=== PATIENT | female | born 1960 | race Caucasian/White ===

== ENCOUNTER 2016-11-06 19:00 | Emergency (ER) | payer OTHER ==
--- NOTE | ~2016-11-06 | CT4 ---
[facility] A Service of [facility] [place] [place] RADIOLOGY TEXT RESULTS PATIENT: ANUSHKA SCHUSTER LOCATION: [facility] : 56 UNIT #: [id number] AGE: [address]: Domi Dupont APRN SEX: F ORDER DR: [id number] [facility] [address] [facility]. [place], [place] [address] [id number] MR#: [id number] Acc #: [id number] NAME: ANUSHKA SCHUSTER : 1960 SEX: F STUDY DATE/TIME: 11/06/2016 19:38 UNIT: CFTX ROOM: STUDY DESCRIPTION: CT Abd and Pelv Wo Cont Attending Physician: Domi Dupont A.P.R.N. Ordering Physician: Domi Dupont A.P.R.N. Primary Care Physician: Chris Chan D.O. MEDICAL IMAGING REPORT This report is preliminary unless electronic signature is present EXAM CT abdomen and pelvis without contrast HISTORY Abdomen pain for 2 weeks. No injury. TECHNIQUE CT abdomen and pelvis was performed without contrast. This CT exam was performed with one or more of the following radiation dose reduction techniques: automatic exposure control, adjustment of mA and/or kV according to patient size, and iterative reconstruction. FINDINGS CT ABDOMEN: There is mild multifocal subsegmental atelectasis in both lung bases. Two calcified granulomas in the inferior left lower lobe. Left hepatic resection. The right hepatic lobe and caudate lobe are unremarkable. The spleen, pancreas, kidneys, and adrenal glands are normal. Normal caliber abdominal aorta. No bowel dilatation. No ascites. CT PELVIS: Normal appendix. No free fluid. No inflammatory stranding. The uterus and adnexa are unremarkable. Urinary bladder is also unremarkable. IMPRESSION 1. No acute findings in the abdomen or pelvis. 2. No bowel obstruction or urinary obstruction. 3. Left hepatic resection. 4. Incidental multifocal subsegmental atelectasis in both lung bases. [facility] A Service of [facility] [place] [place] RADIOLOGY TEXT RESULTS PATIENT: ANUSHKA SCHUSTER LOCATION: [facility] : 56 UNIT #: [id number] AGE: [address]: Domi Dupont APRN SEX: F ORDER DR: Dictated by... Camilo Sanabria M.D. THIS IS AN ELECTRONICALLY VERIFIED REPORT Camilo Sanabria M.D. at 11/07/2016 9:09 PM DFL/pcl TD: 11/06/2016 22:43 JOB #: [id number] MEDICAL IMAGING REPORT Page 1 of 1 COPY
[~2016-11-06 19:00] MED LIST: ABILIFY PO; ACEON; ACETAMINOPHEN PO; ACETAMINOPHEN650 M1 PO; ALDACTONE25 MG PO; ANTI-DIARRHEAL2 M1 PO; ANTIVERT PO; ARTIFICIAL TEA1 EACH; ASPIRIN PO; ASPIRIN81 M1 PO; ASPIRIN81 M2 PO; ATIVAN0.5 MG PO; AVANDIA; BACTRIM DS TABL1 TA1 PO; BACTRIM DS TABL1 TAB; BYETTA10 MCG/0.0 INJ; BYETTA10 MCG/0.0 SUBQ; CELEBREX; CELEXA20 MG PO; CIPRO; CIPRO PO; COATED ASPIRIN325 M1 PO; CYCLOBENZAPRINE5 MG PO; CYMBALTA PO; CYMBALTA20 MG PO; CYMBALTA30 MG PO; DESYREL50 M1 PO; DICLOFENAC PO; DIFLUCAN100 MG PO; DITROPAN5 MG PO; DOC-Q-LACE100 MG PO; DOXEPIN; DULOXETINE HCL60 MG PO; EFFEXOR; FAMVIR500 M1; FLEXERIL PO; GENOPTIC5 ML OP; GLUCOTROL; HALDOL PO; HUMALOG MIX 75/10 ML SQ; HUMALOG MIX 75/10 ML SUBQ; HUMALOG MIX 75/23 M1 SQ; HUMALOG MIX 75/23 ML; HUMALOG100 U/M2 SUBQ; HUMALOG100 U/ML IJ; HUMALOG100 U/ML SUBQ; HUMULIN 70/30 V10 ML SUBQ; HYDROCODON-ACE1 EAC1 PO; HYDROCODON-ACE1 EAC7 PO; HYDROCODON-ACE1 EAC9 PO; JANUVIA100 MG PO; KEFLEX500 MG PO; KETOPROFEN PO; LANTUS100 U/M1 IJ; LANTUS100 U/ML SUBQ; LANTUS100 UNITS/; LANTUS100 UNITS/ SUBQ; LASIX20 MG PO; LEVAQUIN PO; LEVOXYL200 MCG PO; LIPITOR40 MG; LIPITOR40 MG PO; LISINOPRIL PO; LISINOPRIL10 MG PO; LISINOPRIL20 MG PO; LORTAB 10-5001 EACH PO; LORTAB 5-325 M1 EACH PO; LORTAB 7.5-5001 TAB PO; LORTAB 7.51 TAB 7.5/ PO; LYRICA75 MG PO; MEDROL PO; METOPROLOL SUCC25 MG PO; MULTI VITAMIN1 EACH PO; NAPROXEN PO; NEURONTIN100 MG PO; NEURONTIN300 MG PO; NORCO 5/325 TAB1 TAB PO; NORCO 7.5-3251 EACH PO; NORFLEX100 MG PO; NORVASC2.5 MG PO; NOVOLIN 70/30 V10 ML INJ; NOVOLOG100 U/ML; NOVOLOG100 U/ML SUBQ; OMEPRAZOLE20 M2 PO; OMEPRAZOLE40 MG PO; ONDANSETRON ODT4 MG PO; PANTOPRAZOLE SO40 MG PO; PARAFON FORTE500 MG PO; PAXIL; PEPCID PO; PERCOCET10 PO; PHENERGAN12.5 MG PO; PHENERGAN25 MG PO; POLYGESIC 5/5001 CAP PO; POTASSIUM PHOSPHATE PO; PREDNISONE PO; PRILOSEC; PRILOSEC PO; PRILOSEC40 MG PO; PRINIVIL10 MG PO; PROTONIX PO; REGLAN10 MG PO; RITALIN PO; SIMVASTATIN20 MG PO; SIMVASTATIN40 MG PO; SUPRAX400 M1 PO; SUPRENZA ODT30 MG PO; SYMBICORT INH; SYNTHROID; SYNTHROID PO; SYNTHROID175 MCG PO; SYNTHROID75 MCG PO; TEMAZEPAM PO; TORADOL10 MG PO; TRAZODONE HCL100 MG PO; TRAZODONE PO; TUMS500 M1 PO; TYLOX 5-500 CA1 EACH PO; ULTRAM; ULTRAM PO; VICODIN 5/1 TAB 5/50 PO; VICODIN 5/500 T1 TAB PO; VICTOZA 3-0.6 MG/0.1 SQ; VYTORIN 10/20 T1 TAB; VYTORIN 10/40 T1 TAB PO; ZANAFLEX; ZANAFLEX4 M1 PO; ZITHROMAX1 G/PKT PO; ZITHROMAX500 MG PO; ZOCOR PO; ZOCOR5 MG PO; ZOFRAN PO; [UNRECOGNIZED DRUG - REMARK]
[2016-11-06 19:18] LABS: URINE SOURCE CLEAN CATCH
[2016-11-06 19:22] LABS: BASOPHIL# 0.1 X10e3 (0-0.3); BASOPHIL% 0.5 % (0-2.5); EOSINOPHIL# 0.4 X10e3 (0-0.7); EOSINOPHIL% 3.1 % (0.0-7.0); HEMATOCRIT 45.2 % (35.0-45.0); HEMOGLOBIN 14.6 gm/dL (12.0-16.0); LYMPHOCYTE# 2.5 X10e3 (1.0-3.5); LYMPHOCYTE% 18.6 % (17.0-45.0); MEAN CORPUSCULAR HEMOGLOBIN 28.1 PG (28-34); MEAN CORPUSCULAR HGB CONC 32.3 g/dL (30-36); MEAN PLATELET VOLUME 8.7 FL (6.5-11.5); MONOCYTE# 0.9 X10e3 (0-1.0); MONOCYTE% 6.5 % (3.0-12.0); NEUTROPHIL# 9.6 X10e3 (1.5-7.1); NEUTROPHIL% 71.3 % (40-75); PLATELET COUNT 260 X10e3 (140-420); RED BLOOD COUNT 5.19 X10e (3.90-5.30); RED CELL DISTRIBUTION WIDTH 13.9 % (11.0-15.5); WHITE BLOOD COUNT 13.5 X10e3 (4.0-10.5)
[2016-11-06 19:23] LABS: DIFF IND NO
[2016-11-06 19:25] LABS: URINE APPEARANCE CLOUDY; URINE BILIRUBIN NEG (NEG); URINE BLOOD TRACE (NEG); URINE COLOR YELLOW; URINE GLUCOSE >1000 MG/DL (NEG); URINE KETONE NEG (NEG); URINE LEUKOCYTE ESTERASE 1+ (NEG); URINE NITRATE NEG (NEG); URINE PROTEIN NEG (NEG); URINE SPECIFIC GRAVITY 1.032 (1.003-1.035); URINE UROBILINOGEN 0.2 MG/DL (NEG)
[2016-11-06 19:27] LABS: CULTURE INDICATED? YES; URINE BACTERIA AUWI 3+ (NEGATIVE); URINE SQUAMOUS EPITHELIAL CELL OCC /[HPF]; UWBCS1 AUWI 50-100 (0-5)
[2016-11-06 19:47] LABS: ALBUMIN SERUM 4.4 g/dL (3.5-5.0); BILIRUBIN,TOTAL 1.1 mg/dL (0.2-2.0); CALCIUM SERUM 9.3 mg/dL (8.4-10.2); GLOM FILT RATE Estimated 62.1 mL/min (>60); POTASSIUM 4.1 mmol/L (3.5-5.1); PROTEIN TOTAL SERUM 7.5 g/dL (6.0-8.3)
== END 2016-11-06 20:22 | disposition home or self-care (01) ==
LOC: CFTX 19:00
PROVIDERS: Nurse Practitioner
DX: S29.012A Strain of muscle and tendon of back wall of thorax, initial encounter (principal); E11.9 Type 2 diabetes mellitus without complications; I10 Essential (primary) hypertension; K21.9 Gastro-esophageal reflux disease without esophagitis; Z79.4 Long term (current) use of insulin; Z90.49 Acquired absence of other specified parts of digestive tract; Z91.041 Radiographic dye allergy status; Z88.7 Allergy status to serum and vaccine; X58.XXXA Exposure to other specified factors, initial encounter; Y92.9 Unspecified place or not applicable
CPT/HCPCS: 36415; 74176; 80053; 81003; 82150; 83690; 85025; 87086; 99284

== ENCOUNTER 2016-11-26 18:14 | Emergency (ER) | payer OTHER ==
[2016-11-26 18:49] LABS: URINE SOURCE CLEAN CATCH
[2016-11-26 18:57] LABS: URINE APPEARANCE CLOUDY; URINE BILIRUBIN NEG (NEG); URINE BLOOD 1+ (NEG); URINE COLOR YELLOW; URINE GLUCOSE >1000 MG/DL (NEG); URINE KETONE NEG (NEG); URINE LEUKOCYTE ESTERASE 2+ (NEG); URINE NITRATE NEG (NEG); URINE PROTEIN NEG (NEG); URINE SPECIFIC GRAVITY 1.033 (1.003-1.035); URINE UROBILINOGEN 0.2 MG/DL (NEG)
[2016-11-26 18:59] LABS: CULTURE INDICATED? YES; URBCS1 AUWI 25-50 /[HPF] (0-2); URINE BACTERIA AUWI NEG (NEGATIVE); URINE SQUAMOUS EPITHELIAL CELL OCC /[HPF]; UWBCS1 AUWI INNUM (0-5)
[2016-11-26 19:05] LABS: URINE YEAST PRESENT
[2016-11-26 19:42] LABS: BASOPHIL# 0.1 X10e3 (0-0.3); EOSINOPHIL# 0.5 X10e3 (0-0.7); EOSINOPHIL% 3.3 % (0.0-7.0); HEMATOCRIT 46.3 % (35.0-45.0); LYMPHOCYTE# 3.4 X10e3 (1.0-3.5); LYMPHOCYTE% 22.8 % (17.0-45.0); MEAN CELL VOLUME 87.6 FL (83-96); MEAN CORPUSCULAR HEMOGLOBIN 28.5 PG (28-34); MEAN CORPUSCULAR HGB CONC 32.5 g/dL (30-36); MEAN PLATELET VOLUME 8.6 FL (6.5-11.5); MONOCYTE# 1.1 X10e3 (0-1.0); MONOCYTE% 7.3 % (3.0-12.0); NEUTROPHIL# 9.8 X10e3 (1.5-7.1); NEUTROPHIL% 65.6 % (40-75); PLATELET COUNT 308 X10e3 (140-420); RED BLOOD COUNT 5.28 X10e (3.90-5.30); RED CELL DISTRIBUTION WIDTH 14.3 % (11.0-15.5); WHITE BLOOD COUNT 14.9 X10e3 (4.0-10.5)
[2016-11-26 19:49] LABS: DIFF IND NO
[2016-11-26 20:08] LABS: CALCIUM SERUM 9.6 mg/dL (8.4-10.2); GLOM FILT RATE Estimated 62.1 mL/min (>60); POTASSIUM 4.1 mmol/L (3.5-5.1)
== END 2016-11-26 21:21 | disposition home or self-care (01) ==
LOC: CED 18:14 → CFTX 18:14
PROVIDERS: Nurse Practitioner Family
DX: N39.0 Urinary tract infection, site not specified (principal); B37.3 Candidiasis of vulva and vagina; E11.9 Type 2 diabetes mellitus without complications; I10 Essential (primary) hypertension; K21.9 Gastro-esophageal reflux disease without esophagitis; Z86.73 Personal history of transient ischemic attack (TIA), and cerebral infarction without residual deficits; Z86.14 Personal history of Methicillin resistant Staphylococcus aureus infection; Z90.49 Acquired absence of other specified parts of digestive tract; Z98.890 Other specified postprocedural states; Z79.899 Other long term (current) drug therapy; Z91.041 Radiographic dye allergy status; Z87.891 Personal history of nicotine dependence
CPT/HCPCS: 36415; 80048; 81003; 82947; 85025; 87040; 87086; 96361; 96365; 99284; J0696

== ENCOUNTER 2016-12-23 18:58 | Inpatient (IN) | payer OTHER ==
--- NOTE | ~2016-12-23 | HP ---
Unit #: [id number] #: [id number] Patient: ANUSHKA SCHUSTER [id number] [facility]. [place], [place] [address] [id number] I MR#: [id number] NAME: ANUSHKA CSHUSTER ROOM: [address] Age: 56 Sex: F Admission Date: 12/23/2016 : 1960 Attending Physician: Stella Cardoza M.D. Primary Care Physician: Chris Chan D.O. HISTORY AND PHYSICAL CHIEF COMPLAINT Cough, limited in sleep, inhalation. DISCUSSION This is a 56-year-old female with a history of insulin dependent diabetes, hypertension, history of cholangiocarcinoma, hypothyroid, stroke with residual mild left-sided weakness, dyslipidemia, depression, GERD, obesity. She was brought to the emergency room, had evaluation of chest pain with a deep breath. She said she fell asleep on recliner chair and she vomited in her sleep. She woke up with burning sensation in the chest. She says she inhaled bile and she came to the ER with persistent cough and flu like sensation and pain with deep breath. She shows bilateral basal infiltrate suspicious for aspiration pneumonia. She was found to be hypoxic on ABG and eventually been admitted for pneumonia and possible aspiration. She is alert and oriented x3. She denies any fever or chills. She says she vomited one time and happed all today. She is having a persistent cough of two days. She denied any previous complaints. No abdominal pain, no nausea, or vomiting. No headache. No loss of consciousness. PAST MEDICAL HISTORY 1. History of insulin dependent diabetes. 2. Hypertension. 3. History of cholangiocarcinoma, status post resection of the gallbladder. She says she is in remission. 4. History of pneumonia, ARDS with subsequent trach and PEG tube placement in the past, which have been removed. 5. Pulmonary aspergillosis. 6. History of C. diff in the past. 7. 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 8. Hypertension. 9. Hyperlipidemia. 10. History of hypothyroid in the past. 11. History of depression. 12. Previous history of Van palsy. PAST SURGICAL HISTORY 1. History of PEG placement with subsequent removal. 2. History of trach placement with subsequent removal. 3. Bilateral carpal tunnel release. 4. Cholecystectomy and left hepatectomy, again, with positive margins for cholangiocarcinoma. 5. History of cataract extraction. Unit #: [id number] #: [id number] Patient: ANUSHKA SCHUSTER 6. Bilateral elbow surgery. 7. Previous history of negative breast biopsy. ALLERGIES She is allergic to IV contrast and pneumonia vaccine. FAMILY HISTORY Family history is significant for morbid obesity, diabetes and coronary artery disease in the family. SOCIAL HISTORY She lives with . She denies smoking. She denies alcohol or other illicit drug use. HOME MEDICATIONS 1. Celexa 10 mg daily. 2. Humalog 20 units twice a day. 3. Hydrocodone 10/325 1 tablet q.8 hours p.r.n. 4. Lantus 40 and 65 units twice a day. 5. Lisinopril 10 mg daily. 6. Trulicity 1.5 mg subcutaneously. 7. She takes also zantac. REVIEW OF SYSTEMS All review of system negative except for history of present illness. PHYSICAL EXAMINATION GENERAL: A middle-aged female, lying in the bed comfortably, currently not in any distress. She is alert, awake, and oriented x3. Comfortable, not in any distress. VITAL SIGNS: Current vitals are following: Temperature 97.9, heart rate 99, respiratory rate 16, blood pressure 174/90, oxygen 93% on general admission. HEENT: Pupils equal, round, reactive to light and accommodation. Head is normal, atraumatic. Anicteric sclerae. Conjunctivae no pallor. NECK: Supple. No JVD. No lymphadenopathy. No thyromegaly. HEART: S1 and S2. Regular rate and rhythm. LUNGS: Decreased air entry bilaterally with bilateral basal crackles. ABDOMEN: Obese, soft, nondistended. EXTREMITIES: No cyanosis, no clubbing, no edema. SKIN: Warm and dry. NEUROLOGIC: Cranial nerves II-XII was intact. There is a mild left-sided weakness, which was chronic. PSYCH: Normal mood and affect. DIAGNOSTIC STUDIES LABORATORY STUDIES: Troponin less than 0.05. ABG - pH 7.45, pO2 is 55, CO2 30. Sodium 138, potassium 4.3, chloride 101, bicarb 30, glucose 262, BUN 17, creatinine 0.8. LFT within normal limits. INR if 1. CBC - white count 8, hemoglobin 13, hematocrit 40, platelets 206. IMAGING STUDIES: Chest x-ray - questionable bilateral basilar infiltrate. ASSESSMENT AND PLAN 1. Pneumonia with bilateral basilar infiltrate, questionable aspiration. Started patient on IV Zosyn. Will get sling and swath to evaluate in the morning. 2. Acute hypoxia, place on oxygen to keep titration more than 30. Unit #: [id number] #: [id number] Patient: ANUSHKA SCHUSTER 3. History of insulin dependent diabetes. 4. Hypertension. 5. History of cholangiocarcinoma in the past. 6. History of hypothyroidism of old repair. She is not on Synthroid. Will recheck TSH. 7. History of stroke with residual left-sided weakness. 8. History of dyslipidemia. 9. Depression. 10. GERD. 11. Obesity. 12. DVT prophylaxis. Will place the patient on Lovenox. 13. 1. Dictated by Jeannie Melendez TD: 12/24/2016 05:03 JOB #: [id number] HISTORY AND PHYSICAL Page 1 of 1 X X HISTORY AND PHYSICAL
--- NOTE | ~2016-12-23 | CR72 ---
[facility] A Service of [facility] RADIOLOGY TEXT RESULTS PATIENT: ANUSHKA SCHUSTER LOCATION: [facility] [id number] : 56 UNIT #: [id number] AGE: [address]: Hannah Perkins MD SEX: F ORDER DR: [id number] [facility] [address] [facility]. [place], [place] [address] [id number] I MR#: [id number] Acc #: [id number] NAME: ANUSHKA SCHUSTER : 1960 SEX: F STUDY DATE/TIME: 12/23/2016 20:20 UNIT: CED ROOM: 88074 STUDY DESCRIPTION: CR Chest Single View Portable Attending Physician: Stella Cardoza M.D. Ordering Physician: Faby Ragsdale M.D. Primary Care Physician: Chris Chan D.O. MEDICAL IMAGING REPORT This report is preliminary unless electronic signature is present EXAM Portable chest x-ray . HISTORY Chest pain, short of air. Reflux episodes possible aspiration. Chest pain, cough, congestion today. COMPARISON 12/14/15. FINDINGS AP radiograph of the chest presented. Mild cardiac enlargement may in part reflect low lung volumes. Patchy and linear densities bilateral lung bases. Nonspecific appearance. Lung volumes lower than on the prior study and some of these densities may be atelectatic in nature. Bibasilar pneumonia is a consideration in the appropriate clinical context. Given distribution, aspiration is a consideration. No dense airspace consolidation. The upper lung zones are clear. No pleural effusion or pneumothorax and no suspicious nodule. The lungs could best be further evaluated with formal PA and lateral radiographs of the chest obtained at fully inspiration. Dictated by... Ken Herman M.D. THIS IS AN ELECTRONICALLY VERIFIED REPORT Ken Herman M.D. at 12/24/2016 8:14 AM BILL/karol TD: 12/24/2016 07:31 JOB #: [id number] MEDICAL IMAGING REPORT [facility] A Service of [facility] RADIOLOGY TEXT RESULTS PATIENT: ANUSHKA SCHUSTER [facility] [address]43 : 56 UNIT #: [id number] AGE: [address]: Hannah Perkins MD SEX: F ORDER DR: Page 1 of 1 COPY
--- NOTE | ~2016-12-23 | NM19 ---
[facility] A Service of [facility] & [facility] RADIOLOGY TEXT RESULTS PATIENT: ANUSHKA SCHUSTER LOCATION: [facility] [id number] : 56 UNIT #: [id number] AGE: [address]: Hannah Perkins MD SEX: F ORDER DR: [id number] [facility] [address] [facility]. [place], [place] [address] [id number] I MR#: [id number] #: [id number] NAME: ANUSHKA SCHUSTER : 1960 SEX: F STUDY DATE/TIME: 12/26/2016 8:19 UNIT: [address] ROOM: [facility] STUDY DESCRIPTION: NM Gastric Emptying Study Attending Physician: Hannah Perkins M.D. Ordering Physician: Hannah Perkins M.D. Primary Care Physician: Chris Chan D.O. MEDICAL IMAGING REPORT This report is preliminary unless electronic signature is present EXAM Radionuclide gastric emptying scan. HISTORY Mid epigastric cramping, normal duodenum, a lot of acid reflux and bile, up in and back into lungs causing pneumonia, nausea, vomiting, early satiety stays full intermittent for 13 years in throat 2 to 3 years with bad reflux up, feels a lot of abdomen pressure if eats a large meal, belching a lot. Prior liver cancer 2013. One-half liver removed. Following ingestion of 516 mcCi Technetium 99m sulfur colloid admixed scrambled eggs, anterior and posterior views of the abdomen were obtained at 15-minute intervals for 150 minutes. Region of interest drawn around stomach and time-activity curve constructed. Percent remaining at time intervals as follows: 15 minutes - 97%, 30 minutes - 90%, 45 minutes - 89%, 60 minutes - 92%, 75 minutes - 100%, 90 minutes - 100%, 105 minutes - 100%, 120 minutes - 100%, 135 minutes - 96%, 150 minutes - 95%. Percent empty at time intervals as follows: 15 minutes - 3%, 30 minutes - 10%, 45 minutes - 11%, 60 minutes - 8%, 75/90/105/120 minutes - 0%, 135 minutes - 4%, 150 minutes - 5%. IMPRESSION 1. Abnormal examination. Two hour solid phase gastric emptying is 0%. Study not extended to the 4-hour time frame. Study suggests significant gastric motility dysfunction. Correlate clinically. Dictated by... Ken Herman M.D. [facility] A Service of [facility] RADIOLOGY TEXT RESULTS PATIENT: ANUSHKA SCHUSTER LOCATION: [facility] [address] : 56 UNIT #: [id number] AGE: [address]: Hannah Perkins MD SEX: F ORDER DR: THIS IS AN ELECTRONICALLY VERIFIED REPORT Ken Herman M.D. at 12/27/2016 6:12 PM Pia TD: 12/26/2016 14:06 JOB #: [id number] MEDICAL IMAGING REPORT Page 1 of 1 COPY
--- NOTE | ~2016-12-23 | DS ---
Unit #: [id number] #: [id number] Patient: ANUSHKA JUSTICE [id number] [address] [place], [place] [address] [id number] I MR#: [id number] NAME: ANUSHKA JUSTICE ROOM: [facility] Age: 56 Sex: F Admission Date: 12/23/2016 : 1960 Discharge Date: 12/26/2016 Attending Physician: Hannah Perkins M.D. Primary Care Physician: Chris Chan D.O. DISCHARGE SUMMARY PRINCIPAL DIAGNOSES 1. Sepsis, secondary to aspiration pneumonia. 2. Acute hypoxic respiratory failure, secondary to #1, now resolved. 3. Probable gastroparesis with pending gastric emptying study. 4. Gastritis. 5. Esophagitis. 6. Diabetes mellitus, insulin requiring and uncontrolled. Hemoglobin A1c of 8. 7. Reactive airway disease, now resolved. 8. Hypothyroidism. 9. Hypertension, controlled. 10. Gastroesophageal reflux disease. 11. History of stroke, mild residual left-sided weakness. 12. Obesity. CARGO MATE Dr. Dasilva, general surgery. PROCEDURE 1. Gastric emptying study, results of which are currently pending. 2. Chest x-ray on December 23, 2016 with patchy linear densities in the bilateral lung bases. 3. EGD on December 25, 2016 with retained food, mid esophageal esophagitis, and normal duodenum. CLINICAL HISTORY AND HOSPITAL COURSE Ms. Justice is a 56-year-old female who presents to the emergency department after the abrupt onset of shortness of breath. This happened after an episode of severe reflux at home. Please refer to H and P for further details. Upon presentation, she did not have any evidence of leukocytosis. She was, however, found to be hypoxic and subsequently admitted. Patient was placed on empiric antibiotics for aspiration. She was also placed on IV steroids for a short period due to some associated wheezing and her hypoxia. With antibiotic therapy and steroids, her breathing improved significantly. She has been transitioned to Augmentin and oral steroids. Her hypoxia has resolved. Ambulating O2 saturations yesterday were 92% on room air. The patient does have oxygen 2 L at home to use on a p.r.n. basis and of course, she can use it if she feels the need. Given the fact patient's symptoms began after some significant reflux, LSA was consulted. Patient underwent EGD revealing some gastritis and esophagitis. She also had a lot of retained material in the stomach. Unit #: [id number] #: [id number] Patient: ANUSHKA JUSTICE Given these findings, patient underwent gastric emptying study, results of which are currently pending. Patient today, however, states she is going home and she can follow up with her primary care physician regarding the results and I think this is appropriate. She is tolerating liquids and I will advance diet prior to discharge. I will also give her a prescription for Reglan. Patient's other chronic conditions remain stable and she will be discharged home later today. DISCHARGE CONDITION Stable. DISCHARGE STATUS Discharge to home. DISCHARGE MEDICATIONS 1. Trulicity 1.5 mg subcutaneously weekly. 2. Lisinopril 20 mg daily. 3. Humalog 20 units subcutaneous t.i.d. with meals. 4. Lantus 55 units subcutaneously b.i.d. 5. [place] 10/325 one tablet p.o. q.8 hours p.r.n. for pain. 6. Protonix 40 mg b.i.d. 7. Flexeril 10 mg at bedtime. 8. Augmentin 875 mg p.o. b.i.d. for another three days. 9. Prednisone 20 mg two tablets for two days, one tablet for two days, then discontinue. 10. Reglan 5 mg p.o. t.i.d. with meals, one month prescription given. DISCHARGE INSTRUCTIONS 1. The patient was instructed to follow a heart healthy constant carb diet. She should do six small meals daily. 2. She can increase her activity as tolerated. FOLLOWUP Patient has followup appointment with her primary care physician, Dr. Chris Chan, tomorrow and she has been instructed to keep this appointment. She can be seen by Dr. Dasilva again as an outpatient if needed for repeat EGD. Dictated by... Hannah Perkins M.D. JOSELYN/darrell TD: 12/27/2016 10:23 JOB #: [id number] Unit #: [id number] #: [id number] Patient: ANUSHKA JUSTICE DISCHARGE SUMMARY Page 1 of 1 X Hannah Perkins MD X DISCHARGE SUMMARY
--- NOTE | ~2016-12-23 | DS ---
Unit #: [id number] #: [id number] Patient: ANUSHKA SCHUSTER 182004 [address] [address] [id number] Kaelyn MR#: [id number] NAME: ANUSHKA SCHUSTER ROOM: [facility] Age: 56 Sex: F Admission Date: 12/23/2016 : 1960 Discharge Date: 12/26/2016 Attending Physician: Hannah Perkins M.D. Primary Care Physician: Chris Chan D.O. DISCHARGE SUMMARY ADDENDUM Please note patient's gastric emptying study did return significantly abnormal with minimal gastric emptying at 2 hours. I have placed her on Reglan. She will be discharged home and will follow up with LSA as an outpatient. Dictated by... Hannah Perkins M.D. JOSELYN/miguelito TD: 12/27/2016 11:52 JOB #: [id number] DISCHARGE SUMMARY Page 1 of 1 X Hannah Perkins MD X DISCHARGE SUMMARY
--- NOTE | ~2016-12-23 | CO ---
Unit #: [id number] #: [id number] Patient: ANUSHKA SCHUSTER [id number] [address] [place], [place] [address] [id number] I MR#: [id number] NAME: ANUSHKA SCHUSTER ROOM: [facility] Age: 56 Sex: F Admission Date: 12/23/2016 : 1960 Attending Physician: Hannah Perkins M.D. Primary Care Physician: Chris Chan D.O. Consultation Date: 12/24/2016 CONSULTATION REPORT REASON FOR CONSULTATION Severe reflux. Thank you very much for asking us to see Ms. Suárez. HISTORY OF PRESENT ILLNESS She is a 56-year-old white female, whose past medical history is remarkable for insulin-dependent diabetes, hypertension, history of resection of a cholangiocarcinoma, hypothyroidism, mild stroke in the past, dyslipidemia, depression, GERD, and obesity. She was admitted from the emergency room after evaluation of chest pain and some shortness of breath. She woke up with a burning sensation in her chest and the back of her throat. She was evaluated and was admitted and we were asked to see at this time for severe reflux symptoms. She states she has only mild dysphagia. She has had no GI bleeding. No symptoms. PAST MEDICAL HISTORY Diabetes, hypertension, resection of cholangiocarcinoma in the past, cholecystectomy, history of C diff in the past, mild stroke in the past, hyperlipidemia, hypothyroidism, depression. PAST SURGICAL HISTORY History of a PEG and trach, both of which have been removed; bilateral carpal tunnel release; cholecystectomy; left hepatectomy; bilateral cataract removal; bilateral elbow surgery; history of breast biopsies in the past for benign disease. ALLERGIES IV contrast and pneumonia vaccine. FAMILY HISTORY Diabetes and heart disease. SOCIAL HISTORY No tobacco or alcohol use. REVIEW OF SYSTEMS Negative except for above. MEDICATIONS Please see med rec sheet. IMMUNIZATION STATUS Unknown. Unit #: [id number] #: [id number] Patient: ANUSHKA SCHUSTER PHYSICAL EXAMINATION GENERAL: Well-developed, well-nourished white female, in no apparent distress. VITAL SIGNS: Afebrile. Vital signs stable. HEENT: Sclerae not icteric. Extraocular movements are intact. BACK: No CVA or spinous tenderness. NECK: Supple. No thyromegaly or adenopathy. EXTREMITIES: No calf tenderness. ABDOMEN: Flat, soft, nontender. DIAGNOSTIC STUDIES LABORATORY RESULTS: Reveal the patient to have a CMP with a glucose of 218, BUN 16, creatinine 0.8. Normal electrolytes and liver function studies. CBC; the patient has a white count of 13.7, hemoglobin 12.9, hematocrit 41.1. PT and PTT are normal. IMPRESSION A 56-year-old white female with some mild dysphagia, severe reflux resistant to medications. We feel she should have upper endoscopy for further evaluation. All the risks and benefits of esophagogastroduodenoscopy have been fully explained to the patient in detail including the risk of bleeding, perforation, emergency surgery, , and other risks. She understands completely and requests to proceed. Dictated by... Jeannie Rick/neel TD: 12/25/2016 05:38 JOB #: [id number] CC: [facility] Stella Cardoza M.D. CONSULTATION REPORT Page 1 of 1 X Mikey Dasilva MD X CONSULTATION REPORT
--- NOTE | ~2016-12-23 | OR ---
Unit #: [id number] #: [id number] Patient: ANUSHKA SCHUSTER [id number] [address] [address] [id number] I MR#: [id number] NAME: ANUSHKA SCHUSTER ROOM: [facility] Date of Procedure: 12/25/2016 Admission Date: 12/23/2016 Surgeon: Mikey Dasilva M.D. : 1960 Attending Physician: Hannah Perkins M.D. Primary Care Physician: Chris Chan D.O. OPERATIVE REPORT PREOPERATIVE DIAGNOSIS Reflux symptoms. POSTOPERATIVE DIAGNOSIS Reflux symptoms. PROCEDURE PERFORMED Esophagogastroduodenoscopy. ANESTHESIA Monitored anesthesia care. FINDINGS The patient had a large amount of retained food present. She had midesophageal esophagitis and normal duodenum. SPECIMENS None. COMPLICATIONS None apparent. CONDITION The patient tolerated the procedure well. INDICATIONS FOR PROCEDURE The patient is a 56-year-old female, who presents at this time with reflux symptoms and resistant to medications and pneumonia possibly secondary to aspiration. She presents at this time for evaluation by upper endoscopy. DESCRIPTION OF PROCEDURE After obtaining informed consent, the patient was brought to the endoscopy suite. After adequate monitored anesthesia care, had the endoscope placed through the mouth into the upper esophagus under direct vision. It was advanced into the stomach without difficulty with the lumen always in view. Upon entering the stomach, there was a large amount of retained food present. We were able to pass through the pylorus into the duodenum. The duodenum was normal. We were not able to visualize the area of the pylorus very well due to the retained food and on retroflexion back to the GE junction again, a large amount of retained food was present. We were unable to visualize the fundus or cardia very well. On pulling back above the GE junction, there was no stenosis, stricture, or neoplasm seen. Unit #: [id number] #: [id number] Patient: ANUSHKA SCHUSTER There was no significant esophagitis distally, however, on pulling back into the midesophagus, there was an area of midesophageal esophagitis. The remaining portion of the esophagus was within normal limits. Laryngeal structures were not well visualized from above. The patient tolerated the procedure well and went from the endoscopy to the recovery area in stable condition. RECOMMENDATIONS Clear liquid diet, gastric emptying scan in the a.m., resume preop orders. The patient will most likely need repeat upper endoscopy in 1 to 2 days. Dictated by... Jeannie Rick/neel TD: 12/26/2016 02:05 JOB #: [id number] [facility] OPERATIVE REPORT Page 1 of 1 X Mikey Dasilva MD X PROCEDURE OPERATIVE NOTE
--- NOTE | ~2016-12-23 | EKG ---
PATIENT: ANUSHKA SCHUSTER UNIT #: [id number] Ventricular Rate: 98 BPM Atrial Rate: 98 BPM P-R Interval: 160 ms QRS Duration: 90 ms Q-T Interval: 372 ms QTC Calculation(Bezet): 474 ms P [place]: 61 degrees Calculated R [place]: 20 degrees Calculated T [place]: 39 degrees Diagnosis Line: Normal sinus rhythm Diagnosis Line: Low voltage QRS Diagnosis Line: Borderline ECG Diagnosis Line: When compared with ECG of 22-AUG-2015 20:18, Diagnosis Line: No significant change was found Diagnosis Line: Confirmed by MARC DALE MD ([id number]) on Diagnosis Line: 12/24/2016 5:47:45 PM INTERPRETING MD: BOUBACAR
[2016-12-23 20:15] LABS: BASOPHIL% 0.5 % (0-2.5); DIFF IND NO; EOSINOPHIL# 0.6 X10e3 (0-0.7); EOSINOPHIL% 6.9 % (0.0-7.0); HEMATOCRIT 40.9 % (35.0-45.0); HEMOGLOBIN 13.1 gm/dL (12.0-16.0); LYMPHOCYTE# 1.8 X10e3 (1.0-3.5); LYMPHOCYTE% 21.8 % (17.0-45.0); MEAN CELL VOLUME 88.8 FL (83-96); MEAN CORPUSCULAR HEMOGLOBIN 28.3 PG (28-34); MEAN CORPUSCULAR HGB CONC 31.9 g/dL (30-36); MEAN PLATELET VOLUME 8.6 FL (6.5-11.5); MONOCYTE# 0.7 X10e3 (0-1.0); MONOCYTE% 8.1 % (3.0-12.0); NEUTROPHIL# 5.2 X10e3 (1.5-7.1); NEUTROPHIL% 62.7 % (40-75); PLATELET COUNT 206 X10e3 (140-420); RED BLOOD COUNT 4.61 X10e (3.90-5.30); RED CELL DISTRIBUTION WIDTH 13.9 % (11.0-15.5); WHITE BLOOD COUNT 8.3 X10e3 (4.0-10.5)
[2016-12-23 20:25] LABS: PARTIAL THROMBOPLASTIN TIME 24.7 SECONDS (23.5-31.3); PROTHROMBIN TIME (PATIENT) 10.1 SECONDS (9.6-11.5)
[2016-12-23 20:32] LABS: ALBUMIN SERUM 3.8 g/dL (3.5-5.0); BILIRUBIN, DIRECT 0.1 mg/dL (0.0-0.2); BILIRUBIN,INDIRECT 0.4 mg/dL (0.0-0.9); BILIRUBIN,TOTAL 0.5 mg/dL (0.2-2.0); BUN/CREATININE RATIO 21.25; CALCIUM SERUM 9.5 mg/dL (8.4-10.2); CREATININE SERUM 0.8 mg/dL (0.6-1.4); GLOM FILT RATE Estimated 81.3 mL/min (>60); POTASSIUM 4.3 mmol/L (3.5-5.1); PROTEIN TOTAL SERUM 7.2 g/dL (6.0-8.3)
[2016-12-23 20:39] LABS: POC - TROPONIN <0.05 ng/mL (<=0.05)
[2016-12-23 21:53] LABS: ARTERIAL BLD GAS O2 SATURATION 92.2 % (90.0-100.0); ARTERIAL BLOOD GAS MET HB 0.6 %sat (0.0-2.0); ARTERIAL BLOOD GAS PCO2 43.2 mmHg (35.0-45.0); ARTERIAL BLOOD GAS PO2 65.1 mmHg (80.0-100); ARTERIAL DRAW? YES
[2016-12-23 21:54] LABS: ARTERIAL BLOOD GAS ART SITE LEFT BRACHIAL; ARTERIAL BLOOD GAS DELIVERY NASAL CANNULA
[2016-12-23] MEDS ORDERED: FLEXERIL10 MG PO (22:54)
[2016-12-23] MEDS ORDERED: HYDROCODON-ACE1 EAC5 PO (22:55)
[2016-12-23] MEDS ORDERED: HUMALOG100 UNIT/1 SUBQ (22:55)
[2016-12-23] MEDS ORDERED: LISINOPRIL10 MG PO (22:56)
[2016-12-23] MEDS ORDERED: LANTUS100 U/ML SUBQ (22:56)
[2016-12-23] MEDS ORDERED: TRULICITY1.5 MG/0.5 SUBQ (22:57)
[2016-12-23 23:06] LABS: POC - CKMB 4.1 ng/mL (0.0-7.9); POC - TROPONIN <0.05 ng/mL (<=0.05)
[2016-12-24 00:59] LABS: BASOPHIL% 0.3 % (0-2.5); DIFF IND NO; EOSINOPHIL# 0.6 X10e3 (0-0.7); EOSINOPHIL% 4.3 % (0.0-7.0); HEMATOCRIT 41.1 % (35.0-45.0); HEMOGLOBIN 12.9 gm/dL (12.0-16.0); LYMPHOCYTE# 1.9 X10e3 (1.0-3.5); MEAN CELL VOLUME 88.9 FL (83-96); MEAN CORPUSCULAR HEMOGLOBIN 27.9 PG (28-34); MEAN CORPUSCULAR HGB CONC 31.4 g/dL (30-36); MEAN PLATELET VOLUME 8.6 FL (6.5-11.5); MONOCYTE# 0.8 X10e3 (0-1.0); MONOCYTE% 5.9 % (3.0-12.0); NEUTROPHIL# 10.4 X10e3 (1.5-7.1); NEUTROPHIL% 75.5 % (40-75); PLATELET COUNT 193 X10e3 (140-420); RED BLOOD COUNT 4.62 X10e (3.90-5.30); RED CELL DISTRIBUTION WIDTH 14.1 % (11.0-15.5); WHITE BLOOD COUNT 13.7 X10e3 (4.0-10.5)
[2016-12-24 01:20] LABS: CALCIUM SERUM 9.2 mg/dL (8.4-10.2); CREATININE SERUM 0.8 mg/dL (0.6-1.4); GLOM FILT RATE Estimated 81.3 mL/min (>60); POTASSIUM 3.9 mmol/L (3.5-5.1)
[2016-12-24 15:40] LABS: FREE T3 3.8 pg/mL (2.5-3.9)
[2016-12-24 15:41] LABS: FREE THYROXIN (T4) 1.54 ng/dL (0.58-1.64)
[2016-12-25 05:22] LABS: HEMATOCRIT 43.3 % (35.0-45.0); HEMOGLOBIN 13.9 gm/dL (12.0-16.0); MEAN CELL VOLUME 87.7 FL (83-96); MEAN CORPUSCULAR HEMOGLOBIN 28.1 PG (28-34); MEAN PLATELET VOLUME 8.4 FL (6.5-11.5); RED BLOOD COUNT 4.93 X10e (3.90-5.30); RED CELL DISTRIBUTION WIDTH 14.1 % (11.0-15.5); WHITE BLOOD COUNT 14.1 X10e3 (4.0-10.5)
[2016-12-25 05:35] LABS: BUN/CREATININE RATIO 26.25; CALCIUM SERUM 9.8 mg/dL (8.4-10.2); CREATININE SERUM 0.8 mg/dL (0.6-1.4); GLOM FILT RATE Estimated 81.3 mL/min (>60); POTASSIUM 4.6 mmol/L (3.5-5.1)
[2016-12-26 06:12] LABS: HEMATOCRIT 42.9 % (35.0-45.0); HEMOGLOBIN 13.8 gm/dL (12.0-16.0); MEAN CELL VOLUME 87.6 FL (83-96); MEAN CORPUSCULAR HEMOGLOBIN 28.1 PG (28-34); MEAN CORPUSCULAR HGB CONC 32.1 g/dL (30-36); MEAN PLATELET VOLUME 8.4 FL (6.5-11.5); RED BLOOD COUNT 4.9 X10e (3.90-5.30); RED CELL DISTRIBUTION WIDTH 13.9 % (11.0-15.5); WHITE BLOOD COUNT 18.3 X10e3 (4.0-10.5)
[2016-12-26 06:57] LABS: BUN/CREATININE RATIO 36.66; CALCIUM SERUM 9.9 mg/dL (8.4-10.2); CREATININE SERUM 0.6 mg/dL (0.6-1.4); GLOM FILT RATE Estimated 100.5 mL/min (>60); POTASSIUM 3.7 mmol/L (3.5-5.1)
[2016-12-26] MEDS ORDERED: AUGMENTIN PO (15:08)
[2016-12-26] MEDS ORDERED: PROTONIX PO (15:08)
[2016-12-26] MEDS ORDERED: DELTASONE20 MG (15:09)
[2016-12-26] MEDS ORDERED: LISINOPRIL20 MG PO (15:10)
[2016-12-26] MEDS ORDERED: REGLAN5 MG PO (15:11)
== END 2016-12-26 16:07 | disposition home or self-care (01) | DRG 871 ==
LOC: CED 18:58 → CEDOF 23:20 → C3A PCU 23:20 → CED 23:31 → CEDOF 23:31 → C3A PCU 23:31 → CEDOF 12-24 08:24 → C3A PCU 12-24 11:20
PROVIDERS: Emergency Medicine; Internal Medicine; Internal Medicine Geriatric Medicine; Student in an Organized Health Care Education/Training Program; Surgery
PROC: 0DJ08ZZ Inspection of Upper Intestinal Tract, Via Natural or Artificial Opening Endoscopic (ICD-10-PCS; principal; 2016-12-25 07:30)
DX: A41.9 Sepsis, unspecified organism (principal); J69.0 Pneumonitis due to inhalation of food and vomit; K31.84 Gastroparesis; E11.43 Type 2 diabetes mellitus with diabetic autonomic (poly)neuropathy; I69.354 Hemiplegia and hemiparesis following cerebral infarction affecting left non-dominant side; E11.65 Type 2 diabetes mellitus with hyperglycemia; I10 Essential (primary) hypertension; K29.70 Gastritis, unspecified, without bleeding; K20.9 Esophagitis, unspecified; E03.9 Hypothyroidism, unspecified; K21.9 Gastro-esophageal reflux disease without esophagitis; E66.9 Obesity, unspecified; E11.9 Type 2 diabetes mellitus without complications; Z90.49 Acquired absence of other specified parts of digestive tract; Z98.49 Cataract extraction status, unspecified eye; E78.5 Hyperlipidemia, unspecified; F32.9 Major depressive disorder, single episode, unspecified; Z88.7 Allergy status to serum and vaccine; Z91.041 Radiographic dye allergy status; Z83.3 Family history of diabetes mellitus; Z82.49 Family history of ischemic heart disease and other diseases of the circulatory system
CPT/HCPCS: 36415; 36600; 71010; 78264; 80048; 80076; 82553; 82803; 82947; 83036; 83880; 84439; 84443; 84481; 84484; 85025; 85027; 85379; 85610; 85730; 92610; 93005; 94640; 94760; 96374; 96375; 97165; 99285; A9541; C9113; G8987-GO; G8988-GO; G8989-GO; G8996-GN; G8997-GN; G8998-GN; J1815; J2405; J2543; J2920

== ENCOUNTER 2017-01-14 18:39 | Inpatient (IN) | payer OTHER ==
--- NOTE | ~2017-01-14 | CR281 ---
[facility] A Service of [facility] & [facility] RADIOLOGY TEXT RESULTS PATIENT: ANUSHKA SCHUSTER LOCATION: [facility] 563-01 : 56 UNIT #: [id number] AGE: [address]: Christ Kim MD SEX: F ORDER DR: [id number] [facility] [address] [facility]. [place], [place] [address] [id number] I MR#: [id number] Acc #: [id number] NAME: ANUSHKA SCHUSTER : 1960 SEX: F STUDY DATE/TIME: 01/15/2017 1:35 UNIT: [facility] ROOM: [facility] STUDY DESCRIPTION: CR Wrist Min 3 View Lt Attending Physician: Christ Kim M.D. Ordering Physician: Renato Emery M.D. Primary Care Physician: Chris Chan D.O. MEDICAL IMAGING REPORT This report is preliminary unless electronic signature is present EXAM Left wrist. INDICATIONS Left wrist pain and bruising for 2 days. Hit a wall. FINDINGS Three views of the left wrist without comparison. There is no acute fracture or dislocation. Alignment is anatomic. No foreign body. IMPRESSION No acute traumatic findings. Dictated by... Chad Jolley M.D. THIS IS AN ELECTRONICALLY VERIFIED REPORT Chad Jolley M.D. at 01/15/2017 10:45 PM ZELALEM/eh TD: 01/15/2017 20:08 JOB #: [id number] MEDICAL IMAGING REPORT Page 1 of 1 COPY
--- NOTE | ~2017-01-14 | HP ---
Unit #: [id number] #: [id number] Patient: ANUSHKA SCHUSTER [id number] [address] [place], [place] [address] [id number] I MR#: [id number] NAME: ANUSHKA SCHUSTER ROOM: 56 Age: 56 Sex: F Admission Date: 01/15/2017 : 1960 Attending Physician: Christ Kim M.D. Primary Care Physician: Chris Chan D.O. HISTORY AND PHYSICAL CHIEF COMPLAINT Presumed aspiration/hospital acquired pneumonia, recurrent UTI. HISTORY OF PRESENT ILLNESS This pleasant 56-year-old female with history of cholangiocarcinoma, diabetes is admitted for shortness of breath and urinary tract infection. The patient was last admitted to this facility 12/23 through 12/26/2016 for aspiration pneumonia due to newly diagnosed gastroparesis. At the time of discharge, she was prescribed Augmentin as well as Reglan. Despite treatment, notes increasing shortness of breath over the past two weeks along with fatigue and pleuritic chest pain. Two days ago she had a fever, notes an occasional dry cough. The patient does have urinary symptoms including dysuria, urgency, frequency despite multiple rounds of antibiotics. Her primary care physician told her that she had a resistant UTI and would need IV antibiotics. She presented to this emergency department last evening where her chest x-ray is suspicious for bibasilar pneumonia. Urinalysis shows significant pyuria. In the ER, she was treated with Zosyn, vancomycin, tobramycin, bolused a liter of saline. PAST MEDICAL HISTORY 1. Recent admission in December for aspiration pneumonia. The patient was diagnosed with gastroparesis. 2. Admission 06/2013 for respiratory failure secondary to pneumonia, ARDS requiring trach and PEG tube at that time. PEG and trach were removed. 3. Cholangiocarcinoma status post left hepatectomy 06/2014 complicated by postop wound dehiscence. Surgical margins, however, were positive for malignancy. The patient states that sometimes she was in Hospice as chemotherapy was deemed unhelpful but she outlived her Hospice. 4. History of pulmonary aspergillosis. 5. History of C. difficile colitis. 6. CVA x2 with residual left-sided weakness. 7. Hypothyroidism. 8. Depression. 9. AODM. 10. Hypertension. 11. Hyperlipidemia. 12. Peripheral neuropathy. 13. IDDM with peripheral neuropathy and gastroparesis. 14. Previous history of Van's palsy which resolved. 15. Carpal tunnel release bilaterally. 16. Cataract extraction. 17. Cholecystectomy. Unit #: [id number] #: [id number] Patient: ANUSHKA SCHUSTER 18. Bilateral elbow surgery. 19. Negative breast biopsies. SOCIAL HISTORY The patient lives with her . She smoked one pack per day of tobacco for 30 years but stopped smoking about eight years ago, does not drink alcohol. FAMILY HISTORY Ovarian cancer, hypertension, diabetes mellitus. ALLERGIES IV dye and pneumococcal vaccine, questionably allergic to latex. HOME MEDICATIONS 1. Flexeril 10 mg q.h.s. 2. Humalog 20 units t.i.d. with meals. 3. [place] 10/325 mg b.i.d. p.r.n. 4. Lantus 55 units subcu b.i.d. 5. Lisinopril 20 mg daily. 6. Trulicity 1.5 mg subcu weekly. 7. Protonix 40 mg b.i.d. 8. Trazodone. The patient is being weaned off this medicine. I am unsure if it is 50 or 100 mg q.h.s. 9. Synthroid 0.2 mg daily. 10. Reglan 5 mg t.i.d. with meals. 11. Januvia 100 mg daily. 12. Ambien 5 mg q.h.s. 13. Restoril is being weaned down. Current dose is 7.5 mg q.h.s. 14. Wellbutrin XL 150 mg daily. REVIEW OF SYSTEMS Notable for shortness of breath, cough, urinary symptoms, fever, cholangiocarcinoma, C. diff., pulmonary aspergillosis, CVA, hypothyroidism, depression, diabetes, hypertension, hyperlipidemia, neuropathy, gastroparesis, above-mentioned surgeries. All other systems were reviewed and otherwise negative. PHYSICAL EXAMINATION GENERAL APPEARANCE: A pleasant, moderately obese 56-year-old female currently in no acute distress. VITAL SIGNS: Temperature 98. Pulse 111. Respirations 18. Blood pressure 159/83. O2 saturation 99% on two liters of oxygen. HEENT: Eyes: PERRLA. Extraocular muscles are intact. Pharynx is benign. NECK: Supple without adenopathy or thyromegaly. CHEST: Fairly clear. CARDIAC: Normal S1, S2 without S3, S4 or murmur. ABDOMEN: Bowel sounds are present. No hepatosplenomegaly, tenderness or masses. EXTREMITIES: There is a bruise over the left wrist. Patient has tenderness with flexion of the left wrist. No pedal edema. Pedal pulses are present. No ulcers on the feet. NEUROLOGIC: The patient is awake, alert, oriented. Cranial nerves are intact. Equal strength throughout. DIAGNOSTIC STUDIES LABORATORY: Hematocrit 38.9, WBC count 11.8. SMA-12: Glucose 354, sodium 130, chloride 99, alkaline phosphatase 118, lactic acid 2.4. Unit #: [id number] #: [id number] Patient: ANUSHKA SCHUSTER Urinalysis: 2+ leukocyte esterase, 100 to 200 white cells, 2 to 5 red cells. IMAGING: Chest x-ray shows bibasilar infiltrates. CARDIOVASCULAR: EKG: Sinus rhythm, rate 99, normal appearing. ASSESSMENT 1. Presumed aspiration/hospital-acquired pneumonia. 2. Recurrent UTIs, which apparently are resistant to oral antibiotics per patient. 3. Insomnia. The patient is being weaned of the Restoril and trazodone. 4. History of cholangiocarcinoma status post resection with positive margins. 5. IDDM with gastroparesis and peripheral neuropathy. 6. Hypertension. 7. Hypothyroidism. PLAN 1. Meropenem and vancomycin for now pending cultures. 2. Pulmonary consultation. 3. DVT prophylaxis. 4. X-rays of the left wrist. Dictated by Cierra Meyer M.D. AML/bd TD: 01/15/2017 06:47 JOB #: [id number] HISTORY AND PHYSICAL Page 1 of 1 X Cierra Meyer MD X HISTORY AND PHYSICAL
--- NOTE | ~2017-01-14 | DS ---
Unit #: [id number] #: [id number] Patient: ANUSHKA SCHUSTER [id number] [address] [place], [place] [address] [id number] I MR#: [id number] NAME: ANUSHKA SCHUSTER ROOM: [facility] Age: 56 Sex: F Admission Date: 01/15/2017 : 1960 Discharge Date: Attending Physician: Christ Kim M.D. Primary Care Physician: Chris Chan D.O. DISCHARGE SUMMARY PRIMARY DIAGNOSIS Pneumonia, likely. SECONDARY DIAGNOSES 1. Urinary tract infection with Escherichia coli. 2. Insomnia. 3. History of cholangiocarcinoma status post resection with positive margins. 4. Insulin-dependent diabetes. 5. Severe diabetic gastroparesis. 6. History of reflux esophagitis. 7. Asthma with history of asthma exacerbations presumed to be worsened by her reflux. 8. Hypertension. 9. Hypothyroidism. HOSPITAL COURSE Patient was admitted to the hospital, started on meropenem and vancomycin, in part due to her recent hospitalization to cover for possible healthcare-associated pneumonia with a possible or probable gram-negative avril or possible MRSA. Her initial chest x-ray was mostly concerning for pneumonia regarding her lower lobes, and pulmonology was consulted with Dr. Olson and Dr. Ruiz, who ordered a CT scan. The CT scan showed stable linear atelectasis or scarring in the lower lobes bilaterally. However, it showed a different infiltrate that was than the chest x-ray that was concerning for possible pneumonia. This was a moderate patchy infiltrate in the mid and inferolateral right upper lobe. Please see CT of the chest report for details. Patient additionally had urinalysis that was suggestive of a UTI, and she reported that her primary care physician had told her she needed IV antibiotics because she had multi-drug resistant UTI. This was part of the reason that the choice of meropenem was made for her lung issues. However, after the urine cultures finally came back, she did have two separate E-coli. One of them was resistant to Bactrim, resistant to ampicillin and of intermediate sensitivity to Rocephin. There was no extended spectrum beta-lactamase resistance noted, and both E-coli strains that were found in her urine were sensitive to nitrofurantoin. As such, she is being discharged home on nitrofurantoin per the urine culture. The patient does have notable gastroparesis as reported in her previous hospitalization last month, under which she had an EGD with a large amount of retained food and esophagitis. She was discharged on a small dose of Unit #: [id number] #: [id number] Patient: ANUSHKA SCHUSTER at that time, and I have increased her Reglan, as well as added e-mycin, and the patient had a anti air warfare operations officer consult with education on multiple days from both me and the anti air warfare operations officer about a gastroparesis diet to decrease her reflux and in hopes that it will decrease her intermittent respiratory issues. The patient's thyroid appears to be markedly over treated, as her TSH was very low. Looking back at her records, previously she had been prescribed 200 mcg of Synthroid with good control, and so at this time I am going to put her on 175 mcg, and she will need close followup. I am unclear as to how compliant she was with her thyroid back in 2014 when we previously had good TSH levels. DISCHARGE DISPOSITION To home. DISCHARGE STATUS Stable. DISCHARGE ACTIVITY Ad toro. DISCHARGE DIET Diabetic, gastroparesis diet. FOLLOW-UP 1. With her PCP, Dr. Chris Chan, in 1-2 weeks. 2. She can follow up with Dr. Dasilva with general surgery for repeat EGD and esophagitis if needed, as similar to her recent discharge. 3. She can follow up with Dr. Ruiz with pulmonology, partner with Dr. Olson, in 6-10 weeks for her chronic pulmonary lesions. DISCHARGE MEDICATIONS 1. Wellbutrin XL 150 mg p.o. daily. 2. Trazodone, she is to resume her home dose, which is either 50 mg or 100 mg q.h.s. 3. Januvia 100 mg p.o. daily. 4. Zolpidem 5 mg p.o. daily. 5. Restoril 7.5 mg p.o. q.h.s. 6. Lisinopril 20 mg p.o. daily. 7. Trulicity 1.5 mg subcu weekly. 8. Humalog, she can take 25 units if she is having large meals or 20 units if she is having 5 or more small meals per day as per her gastroparesis diet. 9. Lantus is decreased to 50 units b.i.d. subcu. 10. Erythromycin 250 mg p.o. t.i.d. 11. Reglan 10 mg a.c. and q.h.s. 12. Hydrocodone 10/325 mg 1 tablet p.o. b.i.d. p.r.n. pain. 13. Protonix 40 mg p.o. b.i.d. 14. Flexeril 10 mg p.o. q.h.s. 15. Synthroid 175 mcg p.o. daily. 16. Macrobid 100 mg p.o. b.i.d. for 6 days. 17. Levaquin 750 mg p.o. daily for 6 days. Dictated by... Christ Kim M.D. Unit #: [id number] #: [id number] Patient: ANUSHKA SCHUSTER WSB/miguelito TD: 01/18/2017 09:50 JOB #: [id number] DISCHARGE SUMMARY Page 1 of 1 X Christ Kim MD X DISCHARGE SUMMARY
--- NOTE | ~2017-01-14 | CT57 ---
[facility] A Service of [facility] & [facility] RADIOLOGY TEXT RESULTS PATIENT: ANUSHKA SCHUSTER LOCATION: [facility] 563-01 : 56 UNIT #: [id number] AGE: [address]: Christ Kim MD SEX: F ORDER DR: [id number] [facility] [address] [facility]. [place], [place] [address] [id number] I MR#: [id number] #: [id number] NAME: ANUSHKA SCHUSTER : 1960 SEX: F STUDY DATE/TIME: 01/15/2017 13:35 UNIT: [facility] ROOM: [facility] STUDY DESCRIPTION: CT Chest Wo Cont Attending Physician: Christ Kim M.D. Ordering Physician: Adria Olson M.D. Primary Care Physician: Chris Chan D.O. MEDICAL IMAGING REPORT This report is preliminary unless electronic signature is present EXAM CT chest without contrast HISTORY Shortness of air and cough for [address] exam was performed with one or more of the following radiation dose reduction techniques: automatic exposure control, adjustment of mA and/or kV according to patient size, and iterative reconstruction. FINDINGS CT chest without contrast demonstrates moderate patchy infiltrate in the right upper lobe, in the central and inferolateral upper lobe, new compared to CT 09/14/2014. Although nonspecific, this could be secondary to pneumonia. This corresponds to infiltrate on chest x-ray yesterday. Suggest short-term followup chest x-ray after appropriate assessment and treatment. There is also [id number] multifocal chronic linear atelectasis or scarring in the mid and lower lungs bilaterally, and there are two stable calcified granulomas in the inferior left lower lobe. Approximately 4 mm subpleural nodule in the lateral right upper lobe, is new compared to 09/14/2014 CT. Approximately 4 mm nodule in the posterior left upper lobe is stable. These are likely incidental granulomas. No adenopathy. IMPRESSION 1. Moderate patchy infiltrates in the mid and inferolateral right upper lobe corresponds to finding on chest x-ray yesterday. Although nonspecific this could be due to pneumonia. Short-term followup chest x-ray is recommended after appropriate assessment and treatment. 2. Stable moderate chronic multifocal linear atelectasis or scarring in the mid and lower lungs bilaterally. 3. No additional airspace infiltrates, effusions, or adenopathy. [facility] A Service of [facility] RADIOLOGY TEXT RESULTS PATIENT: ANUSHKA SCHUSTER LOCATION: [facility] 563-01 : 56 UNIT #: [id number] AGE: [address]: Christ Kim MD SEX: F ORDER DR: 4. Single small pulmonary nodule in the lateral right upper lobe and one in the posterior left upper lobe. These are likely incidental granulomas. Dictated by... Camilo Sanabria M.D. THIS IS AN ELECTRONICALLY VERIFIED REPORT Camilo Sanabria M.D. at 01/16/2017 11:29 PM TRANG/laci TD: 01/16/2017 02:30 JOB #: [id number] MEDICAL IMAGING REPORT Page 1 of 1 COPY
--- NOTE | ~2017-01-14 | CR72 ---
[facility] A Service of [facility] & [facility] RADIOLOGY TEXT RESULTS PATIENT: ANUSHKA SCHUSTER LOCATION: [facility] 563-01 : 56 UNIT #: [id number] AGE: [address]: Christ Kim MD SEX: F ORDER DR: [id number] [facility] [address] [facility] [place], [place] [address] [id number] I MR#: [id number] #: [id number] NAME: ANUSHKA SCHUSTER : 1960 SEX: F STUDY DATE/TIME: 01/14/2017 20:56 UNIT: [facility] ROOM: [facility] STUDY DESCRIPTION: CR Chest Single View Portable Attending Physician: Christ Kim M.D. Ordering Physician: Renato Emery M.D. Primary Care Physician: Chris Chan D.O. MEDICAL IMAGING REPORT This report is preliminary unless electronic signature is present EXAM Portable chest, 01/14/2017. HISTORY Shortness of breath for 2 days. Benign essential hypertension. FINDINGS The cardiac and mediastinal structures are stable compared with 12/23/2016. There are patchy infiltrates at the lung bases characteristic of bibasilar pneumonia. The upper lungs are clear. There are no pleural effusions. IMPRESSION Patchy infiltrates at the lung bases characteristic of bibasilar pneumonia. Dictated by... Awais Espinosa M.D. THIS IS AN ELECTRONICALLY VERIFIED REPORT Awais Espinosa M.D. at 01/16/2017 6:20 AM VIDHI/eh TD: 01/15/2017 16:05 JOB #: [id number] MEDICAL IMAGING REPORT Page 1 of 1 COPY
--- NOTE | ~2017-01-14 | A ---
[facility] Nutrition Therapy DATE: 01/15/17 Patient: ANUSHKA SCHUSTER Physician: ROBI Address: [address] Room/Bed: [address] [place] [address], Zip: [place] [address] Admit Date: 01/15/17 Date of : 56 Height: 4 10.5 Weight: 184 83.46 NUTRITIONAL ASSESSMENT: REASON: CONSULT RE: DIET EDUCATION PT WAS OUT OF ROOM FOR CT SCAN. RD LEFT WRITTEN GASTROPARESIS + CC DIET EDUCATION W/ IN ROOM. REPORTED NO DIET QUESTIONS AT THIS TIME. RD TO REMAIN AVAILABLE RD WILL F/U PER PROTOCOL Respectfully, SUNSHINE MAHER MS, RD, LD Food and Nutritional Services [facility] cc: client file
--- NOTE | ~2017-01-14 | EKG ---
PATIENT: ANUSHKA SCHUSTER UNIT #: [id number] Ventricular Rate: 99 BPM Atrial Rate: 99 BPM P-R Interval: 152 ms QRS Duration: 88 ms Q-T Interval: 370 ms QTC Calculation(Bezet): 474 ms P [place]: 43 degrees Calculated R [place]: 55 degrees Calculated T [place]: 45 degrees Diagnosis Line: Normal sinus rhythm Diagnosis Line: Normal ECG Diagnosis Line: When compared with ECG of 23-DEC-2016 19:11, Diagnosis Line: No significant change was found Diagnosis Line: Confirmed by MARCELINA SOTO MD ([id number]) on 01/16/2017 Diagnosis Line: 2:58:36 PM INTERPRETING MD: BRITTANY PORTILLO
--- NOTE | ~2017-01-14 | CO ---
Unit #: [id number] #: [id number] Patient: ANUSHKA SCHUSTER [id number] [address] [address] [id number] I MR#: [id number] NAME: ANUSHKA SCHUSTER ROOM: 563 Age: 56 Sex: F Admission Date: 01/15/2017 : 1960 Attending Physician: Christ Kim M.D. Primary Care Physician: Chris Chan D.O. CONSULTATION REPORT REASON FOR CONSULTATION Pneumonia. CHIEF COMPLAINT Shortness of breath. HISTORY OF PRESENT ILLNESS This patient basically is a 56-year-old female who has a past medical history of respiratory failure, history of tracheostomy, history of ARDS, liver cancer, according to the patient hepatectomy (partial) and presents with a complaint of cough, shortness of breath. Was recently discharged from the hospital. I am seeing the patient at bedside, complaining of shortness of breath, mild cough. Denies any headache, blurry vision. No chest pain. REVIEW OF SYSTEMS Positive for pallor. No edema. No cyanosis or jaundice. PAST MEDICAL HISTORY 1. Aspiration pneumonia. 2. Respiratory failure. 3. History of trach and PEG. 4. Cholangiocarcinoma. 5. Liver resection. 6. Clostridium difficile colitis. 7. Hypertension. 8. Dyslipidemia. 9. Depression. 10. Obstructive sleep apnea. 11. Cholecystectomy. SOCIAL HISTORY Ex-smoker. No alcohol. No drug abuse. FAMILY HISTORY Ovarian cancer, hypertension, diabetes mellitus. MEDICATIONS 1. Flexeril. 2. Humalog. 3. [place]. 4. Lantus. 5. Lisinopril. 6. Trulicity. Unit #: [id number] #: [id number] Patient: ANUSHKA SCHUSTER 7. Protonix. 8. Trazodone. 9. Synthroid. 10. Reglan. 11. Januvia. 12. Ambien. 13. Restoril. 14. Wellbutrin. PHYSICAL EXAMINATION VITAL SIGNS: Temperature 98, pulse 110, respirations 16, blood pressure 150/70. NEUROLOGIC: Awake, alert, oriented. No neuro deficit. HEENT: PERRLA plus 1. NECK: Supple. No JVD. CHEST: Bilateral air entry. Bilateral mild rhonchi. GASTROINTESTINAL: Nontender, soft. Bowel sounds positive. EXTREMITIES: No edema. SKIN: No rash. No ulcer. LYMPHATIC: No lymphadenopathy. DIAGNOSTIC STUDIES Labs and imaging have been reviewed. IMAGING: Chest x-ray showed bilateral basilar infiltrates. ASSESSMENT 1. Acute hypoxic respiratory failure, likely exacerbation of chronic obstructive pulmonary disease. 2. Acute bronchitis. 3. Pneumonia, questionable healthcare associated. PLAN Plan is to continue patient on current antibiotic. Continue oxygen, bronchodilators. Order procalcitonin, noncontrast CT of the chest. Patient will be closely monitored. Please see orders for detailed plan. Will continue to follow along with you. Thank you very much for this consultation. Dictated by... Jeannie Jacobs/darrell TD: 01/15/2017 11:00 JOB #: [id number] Unit #: [id number] #: [id number] Patient: ANUSHKA SCHUSTER CONSULTATION REPORT Page 1 of 1 X Adria Olson MD X CONSULTATION REPORT
[~2017-01-14 18:39] MED LIST changes: +AUGMENTIN PO; +DELTASONE20 MG; +FLEXERIL10 MG PO; +HUMALOG100 UNIT/1 SUBQ; +HYDROCODON-ACE1 EAC5 PO; +REGLAN5 MG PO; +TRULICITY1.5 MG/0.5 SUBQ
[2017-01-14 21:04] LABS: BASOPHIL# 0.1 X10e3 (0-0.3); BASOPHIL% 0.5 % (0-2.5); EOSINOPHIL# 0.2 X10e3 (0-0.7); HEMATOCRIT 38.9 % (35.0-45.0); HEMOGLOBIN 12.6 gm/dL (12.0-16.0); LYMPHOCYTE# 1.8 X10e3 (1.0-3.5); LYMPHOCYTE% 15.6 % (17.0-45.0); MEAN CELL VOLUME 87.6 FL (83-96); MEAN CORPUSCULAR HEMOGLOBIN 28.3 PG (28-34); MEAN CORPUSCULAR HGB CONC 32.3 g/dL (30-36); MEAN PLATELET VOLUME 8.5 FL (6.5-11.5); MONOCYTE# 1.1 X10e3 (0-1.0); MONOCYTE% 9.6 % (3.0-12.0); NEUTROPHIL# 8.5 X10e3 (1.5-7.1); NEUTROPHIL% 72.3 % (40-75); PLATELET COUNT 204 X10e3 (140-420); RED BLOOD COUNT 4.44 X10e (3.90-5.30); RED CELL DISTRIBUTION WIDTH 13.9 % (11.0-15.5); WHITE BLOOD COUNT 11.8 X10e3 (4.0-10.5)
[2017-01-14 21:09] LABS: DIFF IND NO
[2017-01-14 21:28] LABS: ALBUMIN SERUM 3.8 g/dL (3.5-5.0); BILIRUBIN, DIRECT 0.1 mg/dL (0.0-0.2); BILIRUBIN,INDIRECT 0.5 mg/dL (0.0-0.9); BILIRUBIN,TOTAL 0.6 mg/dL (0.2-2.0); BUN/CREATININE RATIO 25.71; CALCIUM SERUM 9.1 mg/dL (8.4-10.2); CREATININE SERUM 0.7 mg/dL (0.6-1.4); GLOM FILT RATE Estimated 95.5 mL/min (>60); PROTEIN TOTAL SERUM 6.9 g/dL (6.0-8.3)
[2017-01-14 22:23] LABS: URINE SOURCE CLEAN CATCH
[2017-01-14 22:26] LABS: POC - TROPONIN <0.05 ng/mL (<=0.05)
[2017-01-14 22:30] LABS: URINE APPEARANCE CLOUDY; URINE BILIRUBIN NEG (NEG); URINE BLOOD 1+ (NEG); URINE COLOR YELLOW; URINE GLUCOSE >1000 MG/DL (NEG); URINE KETONE NEG (NEG); URINE LEUKOCYTE ESTERASE 2+ (NEG); URINE NITRATE NEG (NEG); URINE PROTEIN NEG (NEG); URINE SPECIFIC GRAVITY 1.034 (1.003-1.035); URINE UROBILINOGEN 0.2 MG/DL (NEG)
[2017-01-14 22:33] LABS: CULTURE INDICATED? YES; URINE BACTERIA AUWI 4+ (NEGATIVE); URINE SQUAMOUS EPITHELIAL CELL NONE SEEN /[HPF]; UWBCS1 AUWI 100-200 (0-5)
[2017-01-14] MEDS ORDERED: ZOLPIDEM TARTRAT5 MG PO (23:35)
[2017-01-14] MEDS ORDERED: JANUVIA PO (23:35)
[2017-01-14] MEDS ORDERED: RESTORIL22.5 MG PO (23:40)
[2017-01-14] MEDS ORDERED: WELLBUTRIN XL150 M1 PO (23:41)
[2017-01-14] MEDS ORDERED: ZANTAC150 MG PO (23:42)
[2017-01-14 23:43] LABS: POC - CKMB 1.6 ng/mL (0.0-7.9); POC - TROPONIN <0.05 ng/mL (<=0.05)
[2017-01-14] MEDS ORDERED: DESYREL100 MG PO (23:43)
[2017-01-14] MEDS ORDERED: SYNTHROID PO (23:43)
[2017-01-15 06:10] LABS: BASOPHIL# 0.1 X10e3 (0-0.3); BASOPHIL% 0.7 % (0-2.5); EOSINOPHIL# 0.4 X10e3 (0-0.7); EOSINOPHIL% 3.7 % (0.0-7.0); HEMATOCRIT 36.7 % (35.0-45.0); HEMOGLOBIN 11.9 gm/dL (12.0-16.0); LYMPHOCYTE# 2.1 X10e3 (1.0-3.5); LYMPHOCYTE% 20.6 % (17.0-45.0); MEAN CELL VOLUME 86.7 FL (83-96); MEAN CORPUSCULAR HEMOGLOBIN 28.2 PG (28-34); MEAN CORPUSCULAR HGB CONC 32.5 g/dL (30-36); MEAN PLATELET VOLUME 8.3 FL (6.5-11.5); MONOCYTE% 10.3 % (3.0-12.0); NEUTROPHIL# 6.5 X10e3 (1.5-7.1); NEUTROPHIL% 64.7 % (40-75); PLATELET COUNT 191 X10e3 (140-420); RED BLOOD COUNT 4.24 X10e (3.90-5.30); RED CELL DISTRIBUTION WIDTH 13.9 % (11.0-15.5); WHITE BLOOD COUNT 10.1 X10e3 (4.0-10.5)
[2017-01-15 06:24] LABS: DIFF IND NO
[2017-01-15 07:17] LABS: BUN/CREATININE RATIO 18.57; CALCIUM SERUM 8.9 mg/dL (8.4-10.2); CREATININE SERUM 0.7 mg/dL (0.6-1.4); GLOM FILT RATE Estimated 95.5 mL/min (>60); POTASSIUM 3.7 mmol/L (3.5-5.1)
[2017-01-17 08:25] LABS: HEMATOCRIT 38.3 % (35.0-45.0); HEMOGLOBIN 12.3 gm/dL (12.0-16.0); MEAN CELL VOLUME 87.1 FL (83-96); MEAN CORPUSCULAR HGB CONC 32.1 g/dL (30-36); RED BLOOD COUNT 4.4 X10e (3.90-5.30); RED CELL DISTRIBUTION WIDTH 14.2 % (11.0-15.5); WHITE BLOOD COUNT 8.5 X10e3 (4.0-10.5)
[2017-01-17 09:10] LABS: CREATININE SERUM 0.6 mg/dL (0.6-1.4); GLOM FILT RATE Estimated 100.5 mL/min (>60); POTASSIUM 3.8 mmol/L (3.5-5.1)
[2017-01-17 12:05] LABS: LEGIONELLA AG URINE NEG (NEG)
[2017-01-18] MEDS ORDERED: SYNTHROID175 MCG PO (10:09)
[2017-01-18] MEDS ORDERED: ERYTHROMYCIN F PO (10:10)
[2017-01-18] MEDS ORDERED: REGLAN10 MG PO (10:11)
[2017-01-18] MEDS ORDERED: MACROBID100 MG PO (10:11)
[2017-01-18] MEDS ORDERED: LEVAQUIN750 MG PO (10:12)
== END 2017-01-18 12:34 | disposition home or self-care (01) | DRG 189 ==
LOC: CED 18:39 → CEDOF 01-15 00:45 → C5C 01-15 00:45 → CED 01-15 01:13 → CEDOF 01-15 01:13 → C5C 01-15 03:34 → CEDOF 01-15 03:34 → C5C 01-15 06:13
PROVIDERS: Emergency Medicine; Internal Medicine; Internal Medicine Pulmonary Disease
DX: J96.01 Acute respiratory failure with hypoxia (principal); J15.6 Pneumonia due to other Gram-negative bacteria; E11.42 Type 2 diabetes mellitus with diabetic polyneuropathy; J44.0 Chronic obstructive pulmonary disease with (acute) lower respiratory infection; E11.65 Type 2 diabetes mellitus with hyperglycemia; K31.84 Gastroparesis; J44.1 Chronic obstructive pulmonary disease with (acute) exacerbation; N39.0 Urinary tract infection, site not specified; I69.354 Hemiplegia and hemiparesis following cerebral infarction affecting left non-dominant side; Z87.891 Personal history of nicotine dependence; Y95 Nosocomial condition; B96.20 Unspecified Escherichia coli [E. coli] as the cause of diseases classified elsewhere; E11.43 Type 2 diabetes mellitus with diabetic autonomic (poly)neuropathy; Z79.4 Long term (current) use of insulin; G47.00 Insomnia, unspecified; J20.9 Acute bronchitis, unspecified; I10 Essential (primary) hypertension; E03.9 Hypothyroidism, unspecified; Z16.24 Resistance to multiple antibiotics; F32.9 Major depressive disorder, single episode, unspecified; E78.5 Hyperlipidemia, unspecified; Z90.49 Acquired absence of other specified parts of digestive tract; Z98.49 Cataract extraction status, unspecified eye; Z87.440 Personal history of urinary (tract) infections; Z81.1 Family history of alcohol abuse and dependence; Z83.3 Family history of diabetes mellitus; Z80.41 Family history of malignant neoplasm of ovary
CPT/HCPCS: 36415; 71010; 71250; 73110; 80048; 80076; 80202; 81003; 82308; 82553; 82947; 83605; 83690; 84484; 85025; 85027; 87040; 87086; 87088; 87186; 87449; 87899; 93005; 94640; 94760; 96365; 99285; J1650; J1815; J2185; J2405; J2543; J3260; J3370

== ENCOUNTER 2017-04-03 21:07 | Emergency (ER) | payer OTHER ==
[~2017-04-03] VITALS: Ht 147.3 cm; Wt 85.3 kg
--- NOTE | ~2017-04-03 | CT4 ---
[facility] A Service of [facility] & [facility] RADIOLOGY TEXT RESULTS PATIENT: ANUSHKA SCHUSTER LOCATION: [facility] : 56 UNIT #: [id number] AGE: [address]: Guy Enriquez DO SEX: F ORDER DR: [id number] [facility] [address] [place], [place] [address] [id number] E MR#: [id number] #: [id number] NAME: ANUSHKA SCHUSTER : 1960 SEX: F STUDY DATE/TIME: 04/04/2017 1:19 UNIT: [facility] ROOM: STUDY DESCRIPTION: CT Abd and Pelv Wo Cont Attending Physician: Guy Enriquez D.O. Ordering Physician: Guy Enriquez D.O. Primary Care Physician: Chris Chan D.O. MEDICAL IMAGING REPORT This report is preliminary unless electronic signature is present EXAM CT abdomen and pelvis, noncontrast, 04/04/2017 HISTORY 56-year-old female in the ED complaining of 3-4 day history of generalized abdomen pain, burning with urination, urinary tract infection. Past history includes hepatic surgery for liver cancer in 2013. TECHNIQUE CT examination of the abdomen and pelvis was performed without oral or IV contrast as ordered. This CT exam was performed with one or more of the following radiation dose reduction techniques: automatic exposure control, adjustment of mA and/or kV according to patient size, and iterative reconstruction. FINDINGS ABDMEN FINDINGS: No definite acute abnormality is seen within the abdomen or pelvis. There is no visible nephrolithiasis or evidence of urinary obstruction. Postop changes partial left hepatectomy. The remaining liver is diffusely heterogeneous in appearance. The caudate lobe of the liver appears enlarged since the previous study of 11/06/2016 with subtly decreased attenuation, and there are patchy regions of the decreased attenuation elsewhere within the liver. The appearance is concerning for one or more liver masses given the history. If the patient is not a candidate for iodinated contrast administration, followup MRI examination of the liver is recommended for further evaluation. There is no bile duct dilatation. Pancreas and spleen are normal in size and appearance. Small bowel and colon are normal in caliber and appearance, as imaged. The appendix is STS. [facility] A Service of [facility] & [facility] RADIOLOGY TEXT RESULTS PATIENT: ANUSHKA SCHUSTER LOCATION: [facility] : 56 UNIT #: [id number] AGE: [address]: Guy Enriquez DO SEX: F ORDER DR: normal. Normal-caliber abdominal aorta. PELVIS FINDINGS: Uterus, ovaries, urinary bladder and rectum are within normal limits. IMPRESSION 1. No acute abnormality is identified within the abdomen or pelvis. 2. Postop changes partial left hepatectomy. History of liver cancer (no details available). Heterogeneous hepatic parenchyma throughout the remaining liver. Mass-like enlargement of the caudate lobe of the liver with subtly decreased attenuation, increased since the previous study of 11/06/2016. Heterogeneous decreased attenuation elsewhere within the liver concerning for multiple additional liver lesions. If the patient is not a candidate to receive iodinated contrast material, followup MRI examination is recommended to exclude recurrent or metastatic hepatic malignancy. 3. No bile duct dilatation. 4. No additional evidence of metastatic malignancy elsewhere within the abdomen or pelvis. No ascites. Dictated by... Anthony Freeman M.D. THIS IS AN ELECTRONICALLY VERIFIED REPORT Anthony Freeman M.D. at 04/04/2017 5:59 AM JESS/laci TD: 04/04/2017 02:03 JOB #: [id number] MEDICAL IMAGING REPORT Page 1 of 1 COPY
[~2017-04-03 21:07] MED LIST changes: +DESYREL100 MG PO; +ERYTHROMYCIN F PO; +JANUVIA PO; +LEVAQUIN750 MG PO; +MACROBID100 MG PO; +RESTORIL22.5 MG PO; +WELLBUTRIN XL150 M1 PO; +ZANTAC150 MG PO; +ZOLPIDEM TARTRAT5 MG PO
[2017-04-03 22:40] LABS: URINE SOURCE CLEAN CATCH
[2017-04-03 22:47] LABS: URINE APPEARANCE CLOUDY; URINE BILIRUBIN NEG (NEG); URINE BLOOD 1+ (NEG); URINE COLOR YELLOW; URINE GLUCOSE >1000 MG/DL (NEG); URINE KETONE NEG (NEG); URINE LEUKOCYTE ESTERASE 2+ (NEG); URINE NITRATE POS (NEG); URINE PROTEIN TRACE (NEG); URINE SPECIFIC GRAVITY 1.031 (1.003-1.035); URINE UROBILINOGEN 0.2 MG/DL (NEG)
[2017-04-03 22:50] LABS: CULTURE INDICATED? YES; URINE BACTERIA AUWI 4+ (NEGATIVE); URINE SQUAMOUS EPITHELIAL CELL NONE SEEN /[HPF]; UWBCS1 AUWI INNUM (0-5)
[2017-04-04 01:16] LABS: BASOPHIL% 0.5 % (0-2.5); EOSINOPHIL# 0.4 X10e3 (0-0.7); EOSINOPHIL% 4.8 % (0.0-7.0); HEMATOCRIT 43.5 % (35.0-45.0); HEMOGLOBIN 14.2 gm/dL (12.0-16.0); LYMPHOCYTE# 1.7 X10e3 (1.0-3.5); LYMPHOCYTE% 18.6 % (17.0-45.0); MEAN CELL VOLUME 87.5 FL (83-96); MEAN CORPUSCULAR HEMOGLOBIN 28.5 PG (28-34); MEAN CORPUSCULAR HGB CONC 32.6 g/dL (30-36); MEAN PLATELET VOLUME 8.1 FL (6.5-11.5); MONOCYTE# 0.6 X10e3 (0-1.0); MONOCYTE% 6.1 % (3.0-12.0); NEUTROPHIL# 6.3 X10e3 (1.5-7.1); PLATELET COUNT 219 X10e3 (140-420); RED BLOOD COUNT 4.97 X10e (3.90-5.30); WHITE BLOOD COUNT 9.1 X10e3 (4.0-10.5)
[2017-04-04 01:33] LABS: DIFF IND NO
[2017-04-04 01:51] LABS: BILIRUBIN, DIRECT 0.1 mg/dL (0.0-0.2); BILIRUBIN,INDIRECT 0.9 mg/dL (0.0-0.9); BUN/CREATININE RATIO 25.71; CALCIUM SERUM 9.6 mg/dL (8.4-10.2); CREATININE SERUM 0.7 mg/dL (0.6-1.4); GLOM FILT RATE Estimated 95.5 mL/min (>60); POTASSIUM 3.9 mmol/L (3.5-5.1); PROTEIN TOTAL SERUM 7.3 g/dL (6.0-8.3)
== END 2017-04-04 02:45 | disposition home or self-care (01) ==
LOC: CED 21:07
PROVIDERS: Emergency Medicine
DX: N39.0 Urinary tract infection, site not specified (principal); R16.0 Hepatomegaly, not elsewhere classified; C22.1 Intrahepatic bile duct carcinoma; E11.9 Type 2 diabetes mellitus without complications; Z90.49 Acquired absence of other specified parts of digestive tract; I10 Essential (primary) hypertension; K21.9 Gastro-esophageal reflux disease without esophagitis; Z88.7 Allergy status to serum and vaccine; Z91.041 Radiographic dye allergy status; Z79.4 Long term (current) use of insulin; Z79.899 Other long term (current) drug therapy
CPT/HCPCS: 36415; 74176; 80048; 80076; 81003; 83690; 85025; 87086; 87088; 87186; 96365; 99284; J0696